=== PATIENT | male | born 1945 | race Caucasian/White ===

== ENCOUNTER 2018-02-23 15:34 | Inpatient (IN) | payer OTHER ==
[~2018-02-23] VITALS: Ht 182.9 cm; Wt 116.7 kg
[~2018-02-23 15:34] MED LIST: ACETAMINOPHEN325 M1 PO; ASPIRIN EC81 M1 PO; BLOOD PRESSURE; BRILINTA90 MG PO; COUMADIN 5 MG TA5 M1 PO; LISINOPRIL2.5 MG PO; METOPROLOL SUCC25 M1 PO; NITROGLYCERIN0.4 MG SL; NORVASC 2.5 MG2.5 M1; SIMVASTATIN40 MG PO
[2018-02-23 15:36] VITALS: BP 150/68
[2018-02-23 15:51] LABS: HEMATOCRIT 39.2 % (42.0-52.0); HEMOGLOBIN 13.2 gm/dL (14.0-18.0); MCH 28.6 pg (26.0-34.0); MCHC 33.7 g/dL (28.0-37.0); MPV 7.6 fl. (7.2-11.1); NUCLEATED RBCS 0 /100WBC; PLATELET COUNT* 131 thou/uL (150-400); RBC 4.61 mil/uL (4.50-6.00); RDW-CV 15.2 % (10.5-14.5); WBC 10.9 thou/uL (4.0-11.0)
[2018-02-23 15:59] LABS: INR 1.9; PROTIME 19.6 Seconds (9.20-11.50)
[2018-02-23 16:06] LABS: ANION GAP 9 mmol/L (7-16); BUN 15 mg/dL (7-18); CALCIUM 7.9 mg/dL (8.5-10.1); CHLORIDE 106 mmol/L (98-107); CO2 26 mmol/L (21-32); CREATININE 1.2 mg/dL (0.6-1.3); GLUCOSE 117 mg/dL (70-99); POTASSIUM 3.8 mmol/L (3.5-5.1); SODIUM 141 mmol/L (136-145)
[2018-02-23 16:09] LABS: INFLUENZA A ANTIGEN None Detected (None Detect); INFLUENZA B ANTIGEN None Detected (None Detect)
[2018-02-23 16:16] LABS: URINE BILIRUBIN NEGATIVE (Negative); URINE BLOOD NEGATIVE (Negative); URINE CLARITY CLEAR; URINE COLOR YELLOW; URINE GLUCOSE-RANDOM NEGATIVE (Negative); URINE KETONES NEGATIVE (Negative); URINE LEUKOCYTES-REFLEX NEGATIVE (Negative); URINE NITRITE-REFLEX NEGATIVE (Negative); URINE PROTEIN NEGATIVE (Negative)
[2018-02-23 16:17] LABS: ALBUMIN 3.6 g/dL (3.4-5.0); ALKALINE PHOSPHATASE 64 U/L (46-116); LIPASE 91 U/L (73-393); NT-PRO BRAIN NAT PEPTIDE 346 pg/mL (<300); SGOT 31 U/L (15-37); SGPT 26 U/L (30-65); TOTAL PROTEIN 7.4 g/dL (6.4-8.2); TROPONIN-I LEVEL <0.06 ng/mL (<0.06)
[2018-02-23 16:28] LABS: ABSOLUTE LYMPHOCYTES 1.2 thou/uL (0.8-5.3); ABSOLUTE MONOCYTES 0.4 thou/uL (0.0-1.2); ABSOLUTE NEUTROPHILS 9.3 thou/uL (1.6-8.1); ANISOCYTOSIS Occasional; PLATELET ESTIMATE DECREASED
[2018-02-23 17:25] VITALS: BP 113/59
[2018-02-23 17:50] VITALS: BP 113/56
[2018-02-23] MEDS ORDERED: NORVASC5 MG PO (18:05)
[2018-02-23] MEDS ORDERED: COUMADIN 5 MG TA5 M1 PO (18:05)
[2018-02-23] MEDS ORDERED: NEXIUM40 MG PO (18:06)
[2018-02-23 20:00] VITALS: BP 94/49
[2018-02-23 23:47] VITALS: BP 104/56; BP 165/90
[2018-02-24 04:00] VITALS: BP 119/61
[2018-02-24 07:48] VITALS: BP 104/50
--- NOTE | 2018-02-24 10:02 | EKG ---
[place] [address] ELECTROCARDIOGRAM REPORT Name: TANK GAMEZ Room: [address] ADM IN [facility]#: [id number] Admission: 02/23/18 Attend Phys: Smith Horner MD Discharge: Date of : 47 Report #: [id number] THIS REPORT FOR: //name// [facility] ED Test Date: 2018-02-23 Test Time: 15:46:06 Pat Name: TANK GAMEZ Department: Room: [facility] Gender: Hemodialysis Patient Care Specialist: Dylan PALAFOX : 1945 Requested By: German Greenwood Order Number: [id number] MD: Wiliam Reyes Measurements Intervals [place] Rate: 95 P: 33 UT: 148 QRS: 10 QRSD: 110 T: 38 QT: 362 QTc: 455 Interpretive Statements Sinus rhythm Probable left atrial enlargement consider Inferior infarct, old Compared to ECG 01/11/2013 08:17:38 anterior t wave changes less prominent Electronically Signed On 02-24-2018 10:02:31 CDT by Wiliam Reyes [email or web address] <ELECTRONICALLY SIGNED> By: Wiliam Reyes MD, FAC 02/24/18 1002 1546 1546 Wiliam Reyes MD, [facility] /EPI
[2018-02-24 11:26] VITALS: BP 128/54
[2018-02-24 15:21] VITALS: BP 134/71
[2018-02-24 20:00] VITALS: BP 134/68
[2018-02-24 23:52] VITALS: BP 109/65
[2018-02-25] VITALS (12 sets, daily range): BP systolic 119–191; BP diastolic 69–103
[2018-02-25 05:15] LABS: CALCIUM 7.8 mg/dL (8.5-10.1); CREATININE 1.6 mg/dL (0.6-1.3); MAGNESIUM 1.4 mg/dL (1.8-2.4); POTASSIUM 3.8 mmol/L (3.5-5.1)
[2018-02-25 05:21] LABS: HEMATOCRIT 33.1 % (42.0-52.0); HEMOGLOBIN 11.4 gm/dL (14.0-18.0); MCH 29.3 pg (26.0-34.0); MCHC 34.3 g/dL (28.0-37.0); MCV 85.5 fL (80.0-100.0); RBC 3.88 mil/uL (4.50-6.00); RDW-CV 16.3 % (10.5-14.5); WBC 10.9 thou/uL (4.0-11.0)
[2018-02-25 11:25] LABS: URINE POTASSIUM-RANDOM 31.5 mmol/L
--- NOTE | 2018-02-25 12:51 | CON ---
[address] [address] CONSULTATION Name: TANK GAMEZ Room: [address] IN .R.#: [id number] Admission: 02/23/18 Attend Phys: Smith Horner MD Discharge: Date of : 47 Report #: [id number] THIS REPORT FOR: //name// CC: David Horner DATE OF SERVICE: 02/24/2018 INFECTIOUS DISEASE CONSULTATION ATTENDING PHYSICIAN: Smith Horner M.D. REASON FOR EVALUATION: Gram-positive septicemia. HISTORY OF PRESENT ILLNESS: Chart reviewed, the patient examined. This is a 72-year-old gentleman with fairly significant medical history, who has known atherosclerotic coronary artery disease, including previous stroke, acute myocardial infarction, also colon cancer, who noted onset of nausea with emesis, who subsequently developed fevers and shaking chills. It sounds like perhaps true rigors. Denies any significant pulmonary-related complaints. He was evaluated and felt to be experiencing onset of sepsis. As a result, blood cultures were collected, 2 out of 2 now growing gram-positive cocci. Urinalysis was otherwise unremarkable. Chest x-ray, question of right lower lobe infiltrate. CT of the chest is more typical of atelectasis. CT abdomen and pelvis showed no acute process. He is generally moderately improved since admission. Denies significant discomfort at this point. He is lucid. ALLERGIES: None known. MEDICATIONS: Levofloxacin, vancomycin, enoxaparin, atorvastatin, ipratropium and albuterol inhaler, metoprolol, aspirin, p.r.n. analgesics and antiemetics. PAST MEDICAL HISTORY: As described above, hypertension, previous stroke, hyperlipidemia, myocardial infarctions and history of colon cancer. SOCIAL HISTORY: Former smoker, occasional ethanol. FAMILY HISTORY: Noncontributory. REVIEW OF SYSTEMS: As above. PHYSICAL EXAMINATION: GENERAL: Alert, cooperative. He is in mild distress, appears reasonably well nourished. VITAL SIGNS: Temperature 99.1 T-max, since admission 103.8; pulse 90; respirations 16 and blood pressure 128/54[place] [address] CONSULTATION Name: TANK GAMEZ Garry Room: [address]#: [id number] Admission: 02/23/18 Attend Phys: Smith Horner MD Discharge: Date of : 47 Report #: [id number] SKIN: Warm, dry. No rashes. 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 NECK: Supple. LUNGS: Generally clear to auscultation. HEART: Regular. I do not appreciate a murmur. ABDOMEN: Soft. It is distended. There are no peritoneal signs. GENITOURINARY: Deferred. RECTAL: Deferred. LABORATORY DATA: Influenza studies were unremarkable. Urinalysis unrevealing. Electrolytes: Sodium 141, potassium 3.8, chloride 106, bicarbonate is 26, BUN and creatinine 15 and 1.2 and glucose is 117. LFTs normal. Albumin 3.6. Total protein 7.4. Lactic acid initially 2.4, peaked at 3.1 and more recently 1.4. Blood cultures, as described above, 2 out of 2 with gram-positive cocci, awaiting ID. Venous Doppler of the lower extremity showed a short segment of nonocclusive thrombus within the distal right superficial femoral vein. CT imaging as described above. CBC: White count of 10.9, H and H 13.2 and 39.2 and platelets of 131,000. ASSESSMENT: Gram-positive septicemia. It is not entirely clear the source at this point. It could be early pneumonitis due to Pneumococcus given the, what sounds like, rigors. It is not really skin related; staphylococcal concern as well. We will continue current therapy as prescribed. Ideally, with identification, it should help clarify perhaps the origin. We will, at that point, in all likelihood pare down treatment. We will monitor expectantly. <ELECTRONICALLY SIGNED> By: Sesar Allison MD 02/25/18 1251 1538 [id number] Allison MD /nt
[2018-02-25 16:37] LABS: SMEAR FOR EOSINOPHILS No Eosinophils Seen
[2018-02-26 03:50] VITALS: BP 109/65
[2018-02-26 04:33] LABS: HEMATOCRIT 32.9 % (42.0-52.0); HEMOGLOBIN 11.2 gm/dL (14.0-18.0); MCH 28.8 pg (26.0-34.0); MCHC 34.1 g/dL (28.0-37.0); MCV 84.5 fL (80.0-100.0); MPV 8.3 fl. (7.2-11.1); RBC 3.89 mil/uL (4.50-6.00); RDW-CV 15.9 % (10.5-14.5); WBC 9.8 thou/uL (4.0-11.0)
[2018-02-26 05:07] LABS: CALCIUM 7.6 mg/dL (8.5-10.1); CREATININE 1.5 mg/dL (0.6-1.3); MAGNESIUM 1.9 mg/dL (1.8-2.4); POTASSIUM 3.9 mmol/L (3.5-5.1)
[2018-02-26 08:00] VITALS: BP 126/82
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
[2018-02-26 11:53] VITALS: BP 125/79
--- NOTE | 2018-02-26 14:57 | 2DMMODE ---
[place] [address] 2 D/M-MODE ECHOCARDIOGRAM Name: TANK GAMEZ Room: [address] IN .R.#: [id number] Admission: 02/23/18 Attend Phys: Smith Horner, Discharge: Date of : 47 Date of Service: 02/26/18 1457 Report #: [id number] THIS REPORT FOR: //name// APPROVED REPORT Study performed: 02/26/2018 14:04:51 EXAM: Comprehensive 2D, Doppler, and color-flow Echocardiogram Patient Location: Bedside BSA: 2.37 HR: 78 bpm BP: 109/65 mmHg Other Information Study Quality: Fair Indications Dyspnea 2D Dimensions IVSd: 13.15 (7-11mm) LVOT Diam: 23.82 (18-24mm) LVDd: 46.75 mm PWd: 12.66 (7-11mm) Ascending Ao: 31.85 (22-36mm) LVDs: 30.58 (25-40mm) Aortic Root: 30.79 mm Volumes Left Atrial Volume (Systole) LA ESV Index: 27.90 mL/m2 Aortic Valve AoV Peak Gabe.: 1.43 m/s AO Peak Gr.: 8.18 mmHg LVOT Max P.21 mmHg AO Mean Gr.: 4.41 mmHg LVOT Mean P.67 mmHg LVOT Max V: 1.14 m/s AO V2 VTI: 23.21 cm LVOT Mean V: 0.76 m/s LEXIE (VTI): 3.79 cm2 LVOT V1 VTI: 19.74 cm Mitral Valve E/A Ratio: 1.56 MV Decel. Time: 161.61 ms MV E Max Gabe.: 1.04 m/s MV PHT: 46.87 ms MVA (PHT): 4.69 cm2 [place] [address] 2 D/M-MODE ECHOCARDIOGRAM Name: TANK GAMEZ Room: [address] IN [facility]#: [id number] Admission: 02/23/18 Attend Phys: Smith Horner, Discharge: Date of : 47 Date of Service: 02/26/18 1457 Report #: [id number] TDI E/Lateral E': 10.40 E/Medial E': 14.86 Medial E' Gabe.: 0.07 m/s Lateral E' Gabe.: 0.10 m/s Pulmonary Valve PV Peak Gabe.: 1.01 m/s PV Peak Gr.: 4.07 mmHg Tricuspid Valve RAP Estimate: 5.00 mmHg TR Peak Gr.: 40.81 mmHg RVSP: 45.81 mmHg PA Pressure: 45.81 mmHg Left Ventricle The left ventricle is normal size. There is distal septal and anteroapical hypokinesis Mild concentric left ventricular hypertrophy. Left ventricular systolic function is normal. The left ventricular ejection fraction is within the normal range. LVEF is 55-60%. Right Ventricle The right ventricle is normal size. The right ventricular systolic function is normal. Atria The left atrium size is normal. The right atrium size is normal. Aortic Valve Mild aortic valve sclerosis. No aortic regurgitation is present. There is no aortic valvular stenosis. Mitral Valve The mitral valve is normal in structure. Mild mitral regurgitation. No evidence of mitral valve stenosis. Tricuspid Valve The tricuspid valve is normal in structure. Trace tricuspid regurgitation. Pulmonic Valve The pulmonary valve is normal in structure. There is no pulmonic valvular regurgitation[place] [address] 2 D/M-MODE ECHOCARDIOGRAM Name: TANK GAMEZ Room: [address]#: [id number] Admission: 02/23/18 Attend Phys: Smith Horner, Discharge: Date of : 47 Date of Service: 02/26/18 1457 Report #: [id number] The aortic root is normal in size. IVC is normal in size and collapses >50% with inspiration. Pericardium There is no pericardial effusion. <Conclusion> The left ventricle is normal size. Mild concentric left ventricular hypertrophy. Left ventricular systolic function is normal. The left ventricular ejection fraction is within the normal range. LVEF is 55-60%. Mild aortic valve sclerosis. No aortic regurgitation is present. There is no aortic valvular stenosis. The mitral valve is normal in structure. Mild mitral regurgitation. The tricuspid valve is normal in structure. IVC is normal in size and collapses >50% with inspiration. There is no pericardial effusion. There is distal septal and anteroapical hypokinesis <ELECTRONICALLY SIGNED> By: Everardo Gipson MD, [facility] 02/26/18 1457 1457 1457 Everardo Gipson MD, FACC /INF
[2018-02-26 16:00] VITALS: BP 142/79
[2018-02-26 19:09] LABS: IgA 271 mg/dL (61-437); IgG 1063 mg/dL (700-1600); IgM 27 mg/dL (15-143)
[2018-02-26 20:00] VITALS: BP 173/82
[2018-02-26 21:30] VITALS: BP 151/78
[2018-02-27] VITALS: BP 144/80
[2018-02-27 03:41] VITALS: BP 106/57
[2018-02-27 05:58] LABS: HEMOGLOBIN 10.9 gm/dL (14.0-18.0); MCH 28.7 pg (26.0-34.0); MCV 84.6 fL (80.0-100.0); MPV 8.4 fl. (7.2-11.1); RBC 3.78 mil/uL (4.50-6.00); RDW-CV 15.4 % (10.5-14.5); WBC 7.2 thou/uL (4.0-11.0)
[2018-02-27 06:21] LABS: CALCIUM 8.7 mg/dL (8.5-10.1); CREATININE 1.6 mg/dL (0.6-1.3); MAGNESIUM 1.8 mg/dL (1.8-2.4); POTASSIUM 3.4 mmol/L (3.5-5.1)
[2018-02-27 08:48] VITALS: BP 108/60
[2018-02-27 12:08] VITALS: BP 138/66
[2018-02-27 16:01] VITALS: BP 136/65
[2018-02-27 20:00] VITALS: BP 154/83
[2018-02-28] VITALS (8 sets, daily range): BP systolic 155–213; BP diastolic 76–103
[2018-02-28 17:07] LABS: KAPPA FREE LIGHT CHAINS 28.2 mg/L (3.3-19.4); LAMBDA FREE LIGHT CHAINS 28.8 mg/L (5.7-26.3)
[2018-03-01] VITALS: BP 129/60
[2018-03-01 04:00] VITALS: BP 166/81
[2018-03-01 08:00] VITALS: BP 166/81
[2018-03-01 11:57] LABS: URINE BILIRUBIN NEGATIVE (Negative); URINE BLOOD 3+ (Negative); URINE CLARITY SL CLOUDY; URINE COLOR YELLOW; URINE GLUCOSE-RANDOM NEGATIVE (Negative); URINE KETONES NEGATIVE (Negative); URINE LEUKOCYTES NEGATIVE (Negative); URINE NITRITE NEGATIVE (Negative); URINE PROTEIN TRACE (Negative); URINE SPECIFIC GRAVITY >= 1.030 (1.005-1.030); URINE UROBILINOGEN 0.2 E.U./dl (0.2-1.0)
[2018-03-01 12:00] VITALS: BP 166/77
[2018-03-01 12:25] LABS: BACTERIA 1-9 Few /HPF (None Seen); HYALINE CASTS 0-3 Few /LPF (None Seen); MUCUS 4-6 Moderate strn/LPF (None Seen); SQUAMOUS 0-3 Few /LPF (0-3); URINE WBC 0-5 Rare /HPF (0-5)
[2018-03-01 12:26] LABS: AMORPHOUS URATES Few /LPF (None Seen); COARSE GRANULAR CASTS 0-3 Few /LPF (None Seen); FINE GRANULAR CASTS 0-3 Few /LPF (None Seen)
[2018-03-01 20:00] VITALS: BP 148/77
[2018-03-02] VITALS: BP 141/72
[2018-03-02 04:00] VITALS: BP 171/79
[2018-03-02 06:49] VITALS: BP 147/70
[2018-03-02 08:31] VITALS: BP 147/67
[2018-03-02 15:21] LABS: COLOR RED; SOURCE L.ANKLE SYNOVIAL; TOTAL VOLUME 10 ml
[2018-03-02 15:22] LABS: BF EOSINOPHILS ND %; BF LYMPHOCYTES ND %; BF MONOCYTES ND %; BF POLYS ND %; BF RBC ND /mm3; BODY FLUID BANDS ND %; CLARITY CLOUDY
[2018-03-02 15:24] LABS: TOTAL CELL COUNT ND /mm3
[2018-03-02 15:45] VITALS: BP 172/78
[2018-03-02 20:00] VITALS: BP 148/77
[2018-03-03] VITALS (7 sets, daily range): BP systolic 152–164; BP diastolic 72–85
[2018-03-03 06:05] LABS: BF CRYSTALS Negative (None seen)
[2018-03-03 12:05] LABS: BODY FLUID PROTEIN 5.6 g/dL (())
[2018-03-03 15:46] LABS: SOURCE LEFT ANKLE
[2018-03-04] VITALS (7 sets, daily range): BP systolic 148–172; BP diastolic 71–82
[2018-03-04 05:02] LABS: HEMATOCRIT 29.5 % (42.0-52.0); HEMOGLOBIN 10.1 gm/dL (14.0-18.0); MCH 28.6 pg (26.0-34.0); MCHC 34.3 g/dL (28.0-37.0); MCV 83.3 fL (80.0-100.0); RBC 3.53 mil/uL (4.50-6.00); WBC 6.3 thou/uL (4.0-11.0)
[2018-03-04 05:18] LABS: CALCIUM 8.2 mg/dL (8.5-10.1); CREATININE 1.3 mg/dL (0.6-1.3); MAGNESIUM 1.8 mg/dL (1.8-2.4); POTASSIUM 3.5 mmol/L (3.5-5.1)
[2018-03-05] VITALS: BP 166/84
[2018-03-05 04:00] VITALS: BP 174/88
[2018-03-05 08:30] VITALS: BP 158/85
[2018-03-05 11:33] VITALS: BP 174/86
[2018-03-05 12:29] LABS: INR 1.2; PROTIME 11.8 Seconds (9.20-11.50)
[2018-03-05] MEDS ORDERED: XARELTO20 MG PO (12:52)
[2018-03-05] MEDS ORDERED: AMOXICILLIN 50500 MG PO (12:52)
[2018-03-05] MEDS ORDERED: XARELTO15 MG PO (12:53)
[2018-03-05] MEDS ORDERED: IPRAT-ALBUT 0.5-3 ML INH (12:55)
[2018-03-05] MEDS ORDERED: BRILINTA90 MG PO (12:55)
[2018-03-05] MEDS ORDERED: PROTONIX40 M1 PO (12:56)
[2018-03-05] MEDS ORDERED: FLOMAX0.4 MG PO (12:56)
== END 2018-03-05 15:25 | disposition home health service (06) | DRG 871 ==
LOC: M.ERS 15:34 → M.TBA-ER 16:29 → M.2W 16:29
PROVIDERS: Family Medicine; Internal Medicine; Orthopaedic Surgery; ADMIT Internal Medicine
PROC: 5A09357 Assistance with Respiratory Ventilation, Less than 24 Consecutive Hours, Continuous Positive Airway Pressure (ICD-10-PCS; principal; 2018-02-25)
PROC: 5A09357 Assistance with Respiratory Ventilation, Less than 24 Consecutive Hours, Continuous Positive Airway Pressure (ICD-10-PCS; 2018-02-26)
PROC: 5A09357 Assistance with Respiratory Ventilation, Less than 24 Consecutive Hours, Continuous Positive Airway Pressure (ICD-10-PCS; 2018-02-27)
PROC: 0S9G3ZX Drainage of Left Ankle Joint, Percutaneous Approach, Diagnostic (ICD-10-PCS; 2018-03-02)
DX: A40.8 Other streptococcal sepsis (principal); J69.0 Pneumonitis due to inhalation of food and vomit; J96.01 Acute respiratory failure with hypoxia; N17.0 Acute kidney failure with tubular necrosis; L03.116 Cellulitis of left lower limb; I50.22 Chronic systolic (congestive) heart failure; I82.501 Chronic embolism and thrombosis of unspecified deep veins of right lower extremity; M25.072 Hemarthrosis, left ankle; M00.9 Pyogenic arthritis, unspecified; I13.0 Hypertensive heart and chronic kidney disease with heart failure and stage 1 through stage 4 chronic kidney disease, or unspecified chronic kidney disease; R65.20 Severe sepsis without septic shock; E78.5 Hyperlipidemia, unspecified; I25.5 Ischemic cardiomyopathy; N18.3 Chronic kidney disease, stage 3 (moderate); I25.10 Atherosclerotic heart disease of native coronary artery without angina pectoris; E83.42 Hypomagnesemia; D69.6 Thrombocytopenia, unspecified; E66.9 Obesity, unspecified; R33.9 Retention of urine, unspecified; J44.9 Chronic obstructive pulmonary disease, unspecified; M25.472 Effusion, left ankle; Z23 Encounter for immunization; Z86.73 Personal history of transient ischemic attack (TIA), and cerebral infarction without residual deficits; I25.2 Old myocardial infarction; Z85.038 Personal history of other malignant neoplasm of large intestine; Z87.891 Personal history of nicotine dependence; Z68.34 Body mass index [BMI] 34.0-34.9, adult; Z79.82 Long term (current) use of aspirin; Z79.899 Other long term (current) drug therapy

== ENCOUNTER 2018-11-17 12:35 | Inpatient (IN) | payer OTHER ==
[~2018-11-17] VITALS: Ht 182.9 cm; Wt 114.2 kg
[~2018-11-17 12:35] MED LIST changes: +AMOXICILLIN 50500 MG PO; +FLOMAX0.4 MG PO; +IPRAT-ALBUT 0.5-3 ML INH; +NEXIUM40 MG PO; +NORVASC5 MG PO; +PROTONIX40 M1 PO; +XARELTO15 MG PO; +XARELTO20 MG PO
[2018-11-17 12:36] VITALS: BP 167/92
[2018-11-17 13:13] LABS: ABSOLUTE EOSINOPHILS 0.1 thou/uL (0.0-0.7); ABSOLUTE LYMPHOCYTES 0.8 thou/uL (0.8-5.3); ABSOLUTE MONOCYTES 0.3 thou/uL (0.0-1.2); ABSOLUTE NEUTROPHILS 2.8 thou/uL (1.6-8.1); BASOPHILS 0.7 %; EOSINOPHILS 1.7 %; HEMATOCRIT 29.6 % (42.0-52.0); HEMOGLOBIN 9.7 gm/dL (14.0-18.0); LYMPHOCYTES 19.9 %; MCH 25.5 pg (26.0-34.0); MCHC 32.8 g/dL (28.0-37.0); MCV 77.6 fL (80.0-100.0); MONOCYTES 7.4 %; NUCLEATED RBCS 0 /100WBC; PLATELET COUNT* 114 thou/uL (150-400); POLYS 70.3 %; RBC 3.81 mil/uL (4.50-6.00); RDW-CV 15.8 % (10.5-14.5)
[2018-11-17 13:18] LABS: ANION GAP 7 mmol/L (7-16); BUN 23 mg/dL (7-18); CALCIUM 8.5 mg/dL (8.5-10.1); CHLORIDE 108 mmol/L (98-107); CO2 29 mmol/L (21-32); CREATININE 1.4 mg/dL (0.6-1.3); GLUCOSE 134 mg/dL (70-99); POTASSIUM 3.6 mmol/L (3.5-5.1); SODIUM 144 mmol/L (136-145)
[2018-11-17 13:21] LABS: APTT 29.3 Seconds (25.0-31.3); INR 1.2; PROTIME 12.6 Seconds (9.20-11.50)
[2018-11-17 13:29] LABS: ALBUMIN 3.4 g/dL (3.4-5.0); ALKALINE PHOSPHATASE 52 U/L (46-116); MAGNESIUM 1.9 mg/dL (1.8-2.4); NT-PRO BRAIN NAT PEPTIDE 522 pg/mL (<300); SGOT 18 U/L (15-37); SGPT 20 U/L (30-65); TOTAL BILIRUBIN 1.1 mg/dL (<0.1-1.0); TOTAL PROTEIN 7.3 g/dL (6.4-8.2); TROPONIN-I LEVEL <0.06 ng/mL (<0.06)
[2018-11-17 14:28] LABS: URINE BILIRUBIN NEGATIVE (Negative); URINE BLOOD 1+ (Negative); URINE CLARITY CLEAR; URINE COLOR YELLOW; URINE GLUCOSE-RANDOM NEGATIVE (Negative); URINE KETONES NEGATIVE (Negative); URINE LEUKOCYTES-REFLEX NEGATIVE (Negative); URINE NITRITE-REFLEX NEGATIVE (Negative); URINE PROTEIN NEGATIVE (Negative); URINE SPECIFIC GRAVITY >= 1.030 (1.005-1.030); URINE UROBILINOGEN 0.2 E.U./dl (0.2-1.0)
[2018-11-17 14:49] LABS: BACTERIA-REFLEX 1-9 Few /HPF (None Seen); CASTS None Seen /LPF (None Seen); CRYSTALS None Seen /LPF (None Seen); SQUAMOUS 0-3 Few /LPF (0-3); URINE RBC 0-2 Rare /HPF (0-2); URINE WBC-REFLEX 0-5 Rare /HPF (0-5)
[2018-11-17 15:19] LABS: AMP/METHAMP Negative (Negative); BARBITURATES Negative (Negative); BENZODIAZEPINES Negative (Negative); COCAINE Negative (Negative); METHADONE Negative (Negative); OPIATES Negative (Negative); PCP Negative (Negative); THC Negative (Negative)
--- NOTE | 2018-11-17 16:22 | NUR ---
PT COMPLETED MRI CHECKLIST; PLACED IN PT'S CHART.
[2018-11-17 18:06] VITALS: BP 162/84
[2018-11-17 18:20] VITALS: BP 165/97
--- NOTE | 2018-11-17 18:52 | NUR ---
PATIENT PRESENTED TO ROOM 221 FROM ER PER CART. PATIENT IS ALERT, ORIENTED X 4 ON ARRIVAL TO THE UNIT. PLACED ON TELE MONITOR. TELE SHOWS SR. IV FLUIDS RESUMED FROM THE ER. PATIENT EDUCATED ON FALL PRECAUTIONS. VITAL SIGNS MONITORED AND DIET ORDERED. BP SOMEWHAT ELEVATED ON ARRIVAL. PATIENT STATES THAT HE FEELS MUCH BETTER THAN WHEN HE CAME IN TO THE ER. WILL REPORT TO CITY LETTER CARRIER.
[2018-11-17 20:00] VITALS: BP 129/69
[2018-11-18] VITALS (9 sets, daily range): BP systolic 128–172; BP diastolic 75–90
[2018-11-18 04:12] LABS: ABSOLUTE EOSINOPHILS 0.1 thou/uL (0.0-0.7); ABSOLUTE LYMPHOCYTES 0.8 thou/uL (0.8-5.3); ABSOLUTE MONOCYTES 0.3 thou/uL (0.0-1.2); ABSOLUTE NEUTROPHILS 2.5 thou/uL (1.6-8.1); BASOPHILS 0.5 %; EOSINOPHILS 1.9 %; HEMATOCRIT 28.9 % (42.0-52.0); HEMOGLOBIN 9.3 gm/dL (14.0-18.0); LYMPHOCYTES 21.9 %; MCHC 32.1 g/dL (28.0-37.0); MCV 77.9 fL (80.0-100.0); MONOCYTES 7.8 %; MPV 7.9 fl. (7.2-11.1); NUCLEATED RBCS 0 /100WBC; PLATELET COUNT* 100 thou/uL (150-400); POLYS 67.9 %; RBC 3.71 mil/uL (4.50-6.00); RDW-CV 15.9 % (10.5-14.5); WBC 3.7 thou/uL (4.0-11.0)
--- NOTE | 2018-11-18 04:17 | NUR ---
ASSUMED PT CARE APPROX 1900, PT IS AWAKE AND ORIENTED X4. VSS ON ROOM AIR. VENDING ENTERPRISES SUPERVISOR IN PLACE TRACING SR ON TELE. PT DENIES PAIN AND DISCOMFORT. ASSESSMENT DONE AND CHARTED. NIH PERFORMED, PLS SEE CHARTING. PT ADVISED TO HAVE NOTHING PER OREM PER PROTOCOL(+DYSARTHRIA). PT WAS ABLE TO SLEEP THROUGH THE NIGHT. CALL LIGHT WITHIN REACH. HOURLY ROUNDING DONE FOR PT SAFETY.
[2018-11-18 04:44] LABS: ANION GAP 8 mmol/L (7-16); BUN 20 mg/dL (7-18); CALCIUM 8.7 mg/dL (8.5-10.1); CHLORIDE 111 mmol/L (98-107); CHOLESTEROL 138 mg/dL (<200); CO2 26 mmol/L (21-32); CREATININE 1.3 mg/dL (0.6-1.3); GLUCOSE 126 mg/dL (70-99); HDL CHOLESTEROL 31 mg/dL (>40); LDL CHOLESTEROL 69 mg/dL (<100); POTASSIUM 4.1 mmol/L (3.5-5.1); SERUM ASSESSMENT Clear; SODIUM 145 mmol/L (136-145); TC:HDL 4.5 Ratio (Not establshd); TRIGLYCERIDE 194 mg/dL (<150); VLDL 39 mg/dL (<40)
--- NOTE | 2018-11-18 09:52 | NUR ---
MARKETING ASSISTANT: MET WITH PATIENT, REVIEWED STROKE PROGRAM. PT DENIES DIZZINESS OR BLURRY VISION. SPEECH SOMEWHAT CLEAR, WAITING FOR SUPPLIE TO PUT IN DENTURES. REVIEWED BLOOD PRESSURE MANAGMENT AND MEDICATIONS. NO CONCERNS AT THIS TIME.
--- NOTE | 2018-11-18 10:00 | NUR ---
ASSUMED PT 0730, AOX4, SBA, 02 SAT 90'S RA. PT DENIES ANY PAIN. PT FOR ACCU CHECK. TRACING SINUS RUFINO ON TELE. LOWER EXTREMITY EDEMA NOTED. PT NPO FOR SPEECH EVAL. PT FOR ECHO COMPLETE. ORTHOSTATIC BP CHECKED. VSS, AM ASSESMENT CHARTED. MEDS GIVEN PER MAR. CALL LIGHT WITHIN REACH. HOURLY ROUNDING. WILL CONTINUE TO MONITOR.
--- NOTE | 2018-11-18 10:49 | EKG ---
[place] [address] ELECTROCARDIOGRAM REPORT Name: TANK GAMEZ Room: [address] ADM IN [facility]#: [id number] Admission: 11/17/18 Attend Phys: Caleb Salgado MD Discharge: Date of : 47 Report #: [id number] THIS REPORT FOR: //name// [facility] ED Test Date: 2018-11-17 Test Time: 14:09:01 Pat Name: TANK GAMEZ Department: Room: [facility] Gender: M Correctional Program Officer: : 1945 Requested By: Darryl Taylor Order Number: [id number] MD: Wiliam Reyes Measurements Intervals [place] Rate: 60 P: 41 [place]: 166 QRS: 30 QRSD: 128 T: 25 QT: 436 QTc: 436 Interpretive Statements Sinus rhythm Nonspecific intraventricular conduction delay Compared to ECG 02/23/2018 15:46:06 Myocardial infarct finding no longer present Electronically Signed On 11-18-2018 10:48:54 CDT by Wiliam Reyes [email or web address] <ELECTRONICALLY SIGNED> By: Wiliam Reyes MD, [facility] 11/18/18 1048 1409 140 Wiliam Reyes MD, [facility] /EPI
[2018-11-18 11:06] LABS: GLYCOHEMOGLOBIN (HGB A1C) 6.7 % (4.8-5.6)
--- NOTE | 2018-11-18 12:25 | NUR ---
Pt is A&O. Resides at home with his . Independent, continues to drive, and Pt share recreational assistant. Pt has a walker that he can use for mobility. Pt has a neb through [employer] and a shower chair. Hx of [facility] HH. No hx of SNF. Pt is hopeful that he will be able to return home at or. Following.
--- NOTE | 2018-11-18 16:36 | 2DMMODE ---
[place] [address] 2 D/M-MODE ECHOCARDIOGRAM Name: TANK GAMEZ Room: [address] IN [facility]#: [id number] Admission: 11/17/18 Attend Phys: Caleb Salgado MD Discharge: Date of : 47 Date of Service: 11/18/18 1635 Report #: [id number] THIS REPORT FOR: //name// APPROVED REPORT Study performed: 11/18/2018 13:50:23 EXAM: Comprehensive 2D, Doppler, and color-flow Echocardiogram, bubble study Patient Location: In-Patient Room #: [facility] Status: routine BSA: 2.34 HR: 63 bpm BP: 156/82 mmHg Rhythm: NSR Other Information Technically limited study due to poor endocardial definition, body habitus. Indications CVA/TIA Echo Enhancing Agent Indication: Endocardial border delineation and rule out shunt Agent(s) / Amount(s) Used: Optison 3 cc Agitated Saline 10 cc 2D Dimensions IVSd: 15.67 (7-11mm) LVOT Diam: 21.87 (18-24mm) LVDd: 46.27 mm PWd: 14.49 (7-11mm) Ascending Ao: 36.77 (22-36mm) LVDs: 28.48 (25-40mm) Aortic Root: 38.83 mm Volumes Left Atrial Volume (Systole) LA ESV Index: 35.30 mL/m2 Aortic Valve AoV Peak Gabe.: 1.16 m/s AO Peak Gr.: 5.35 mmHg LVOT Max P.46 mmHg AO Mean Gr.: 3.25 mmHg LVOT Mean P.05 mmHg LVOT Max V: 1.06 m/[place] [address] 2 D/M-MODE ECHOCARDIOGRAM Name: TANK GAMEZ Room: [address] IN .R.#: [id number] Admission: 11/17/18 Attend Phys: Caleb Salgado MD Discharge: Date of : 47 Date of Service: 11/18/18 1635 Report #: [id number] AO V2 VTI: 27.39 cm LVOT Mean V: 0.65 m/s LEXIE (VTI): 3.22 cm2 LVOT V1 VTI: 23.47 cm Mitral Valve E/A Ratio: 1.83 MV Decel. Time: 182.33 ms MV E Max Gabe.: 0.89 m/s MV PHT: 52.88 ms MVA (PHT): 4.16 cm2 TDI E/Lateral E': 8.90 E/Medial E': 9.89 Medial E' Gabe.: 0.09 m/s Lateral E' Gabe.: 0.10 m/s Pulmonary Valve PV Peak Gabe.: 0.88 m/s PV Peak Gr.: 3.08 mmHg Tricuspid Valve RAP Estimate: 5.00 mmHg TR Peak Gr.: 38.85 mmHg RVSP: 43.00 mmHg PA Pressure: 43.00 mmHg Left Ventricle Left ventricle is mildly dilated. apical akinesis Mild to moderate concentric left ventricular hypertrophy. Left ventricular systolic function is moderately decreased. LVEF is 35-40%. Grade IV - fixed restrictive diastolic dysfunction. Right Ventricle Right ventricle is dilated. The right ventricular systolic function is normal. Atria Left atrium is mildly dilated. Interatrial septum is intact without evidence of ASD or PFO. Right atrium is dilated. Aortic Valve Aortic valve leaflets are mildly thickened. Trace aortic regurgitation. There is no aortic valvular stenosis. Mitral Valve The mitral valve is normal in structure. Mild mitral regurgitation. No evidence of mitral valve stenosis[place] [address] 2 D/M-MODE ECHOCARDIOGRAM Name: GAMEZTANK Room: [address] IN [facility]#: [id number] Admission: 11/17/18 Attend Phys: Caleb Salgado MD Discharge: Date of : 47 Date of Service: 11/18/18 1635 Report #: [id number] The tricuspid valve is normal in structure. Mild tricuspid regurgitation. estimated pa pressure 45 mm Hg Pulmonic Valve Pulmonic valve is not well visualized. There is no pulmonic valvular regurgitation. Great Vessels The aortic root is normal in size. IVC is normal in size and collapses >50% with inspiration. Pericardium There is no pericardial effusion. <Conclusion> Mild to moderate concentric left ventricular hypertrophy. apical akinesis LVEF is 35-40%. Left atrium is mildly dilated. Mild mitral regurgitation. Interatrial septum is intact without evidence of ASD or PFO. Mild tricuspid regurgitation. estimated pa pressure 45 mm Hg <ELECTRONICALLY SIGNED> By: Wiliam Reyes MD, FACC 11/18/18 1635 1635 1635 Wiliam Reyes MD, FACC /INF
--- NOTE | 2018-11-18 17:37 | NUR ---
PT STILL TRACING SINUS RUFINO ON TELE. HAD ECHO TODAY. VSS, HOURLY ROUNDING. ALL NEED MET AT THIS TIME. WILL CONTINUE TO MONITOR.
[2018-11-19 00:15] VITALS: BP 116/65
--- NOTE | 2018-11-19 03:06 | NUR ---
ASSUMED PT CARE AT APPROX 1930. PT IS AWAKE AND ORIENTED X4. VSS ON ROOM AIR. COMMERCIAL LITIGATION ASSOCIATE IN PLACE TRACING SR. ASSESSMENT DONE AND CHARTED. PT WAS ABLE TO SLEEP THROUGH THE NIGHT. CALL LIGHT WITHIN REACH. HOURLY ROUNDING DONE FOR PT SAFETY.
[2018-11-19 04:00] VITALS: BP 146/78
[2018-11-19 05:11] LABS: ABSOLUTE EOSINOPHILS 0.1 thou/uL (0.0-0.7); ABSOLUTE LYMPHOCYTES 0.6 thou/uL (0.8-5.3); ABSOLUTE MONOCYTES 0.4 thou/uL (0.0-1.2); ABSOLUTE NEUTROPHILS 3.7 thou/uL (1.6-8.1); BASOPHILS 0.6 %; EOSINOPHILS 1.9 %; HEMATOCRIT 29.1 % (42.0-52.0); HEMOGLOBIN 9.4 gm/dL (14.0-18.0); MCH 25.2 pg (26.0-34.0); MCHC 32.4 g/dL (28.0-37.0); MCV 77.8 fL (80.0-100.0); MONOCYTES 7.5 %; MPV 8.1 fl. (7.2-11.1); NUCLEATED RBCS 0 /100WBC; PLATELET COUNT* 99 thou/uL (150-400); RBC 3.73 mil/uL (4.50-6.00); RDW-CV 15.9 % (10.5-14.5); WBC 4.8 thou/uL (4.0-11.0)
[2018-11-19 05:23] LABS: CALCIUM 8.3 mg/dL (8.5-10.1); CREATININE 1.2 mg/dL (0.6-1.3); POTASSIUM 3.8 mmol/L (3.5-5.1)
[2018-11-19 08:00] VITALS: BP 159/90
--- NOTE | 2018-11-19 11:14 | NUR ---
ASSUMED PT CARE AT 0800. AOX4, UP SBA. O2 SAT 90'S RA. TRACING SR ON TELE. LUNG SOUND CLEAR. LAST BM TODAY. DENIES PAIN, PT STATES HE FEELS BETTER. VSS, AM ASSESSMENT CHARTED. MEDS GIVEN PER MAR. CALL LIGHT WITHIN REACH. WILL CONTINUE TO MONITOR.
--- NOTE | 2018-11-19 11:48 | NUR ---
CARE SPECIALIST SPOKE TO THE PATIENT TO DISCUSS DISCHARGE PLANNING, AND HH AT D/C. PATIENT INFORMS THAT HE HAD BEEN ON-SERVICE WITH [facility] IN THE PAST AND WOULD LIKE TO USE THEM AGAIN. D/C OUTSIDE PLANT ENGINEER ASSISTED THE PATIENT IN COMPLETING CHOICE OF VENDOR FORM AND PLACED COPY ON THE CHART. D/C OUTSIDE PLANT ENGINEER INFORMED [facility] OF THE HH REFERRAL, AND WILL FAX D/C ORDERS WHEN AVAIALABLE. CM WILL REMAIN AVAILABLE TO ASSIST AND FOLLOW NEEDED.
[2018-11-19 11:53] VITALS: BP 159/90
[2018-11-19 12:48] VITALS: BP 128/77
[2018-11-19] MEDS ORDERED: LIPITOR40 MG PO (12:48)
[2018-11-19] MEDS ORDERED: METOPROLOL SUCC25 M1 PO (12:48)
[2018-11-19] MEDS ORDERED: COZAAR 50 MG TA50 M1 PERTUBE (12:49)
[2018-11-19] MEDS ORDERED: VITAMIN B-12500 MCG PO (12:50)
[2018-11-19] MEDS ORDERED: THERA M PLUS T1 EAC2 PO (12:50)
[2018-11-19 14:55] VITALS: BP 159/90
--- NOTE | 2018-11-19 16:00 | NUR ---
DISCHARGE PLAN DISCUSSED WITH PT. MEDICATION/SCRIPT GIVEN. IV, TELE REMOVED. REMINDED TO FOLLOW UP WITH PCP, CARDIOLOGY. LEFT THE UNIT VIA WHEELCHAIR AT 1553
--- NOTE | 2018-11-23 14:10 | CON ---
[address] [address] CONSULTATION Name: TANK GAMEZ Room: [address] IN ..#: [id number] Admission: 11/17/18 Attend Phys: Caleb Salgado MD Discharge: 11/19/18 Date of : 47 Report #: [id number] THIS REPORT FOR: //name// CC: David Salgado DATE OF SERVICE: 11/18/2018 HISTORY OF PRESENT ILLNESS: This is a 73-year-old male patient who is somewhat a poor historian. He said he is here because his case wanted to be checked out. He indicates that he was watching TV and then noticed that he was dizzy. He checked his blood pressure, it was high. I asked him if the blood pressure monitor gave him the pulse also, he said it did, but he does not remember how much it was. He is not feeling dizzy now. The episode came spontaneously. He said he was able to move all 4 extremities. It is not certain that he was ataxic. He did not get up and is not certain if he was ataxic or not. He said he did not get up or try to get up because he does not want to fall down. REVIEW OF SYSTEMS: Indicates that the patient is on Xarelto. To me, he tells that he takes that medication regularly, although he is not very compliant with other medications, like his cholesterol medication. He said he does have a history of hypertension, as well as dyslipidemia. He does have somewhat lower heart rate during this hospitalization. Otherwise, he feels back to his baseline now. He tells me that he is not having any new eye, ENT symptoms. He does not feel he has any shortness of breath. He does not complain of any GI, , musculoskeletal, constitutional, dermatological, hematological, psychiatric, throat, or allergic symptom associated with present symptomatology. PAST MEDICAL HISTORY: Not clear. He said he had similar episode in the past, but they were not that severe. He could not tell me the detail or when those episodes occurred. FAMILY HISTORY: Negative for any early-age stroke. SOCIAL HISTORY: The patient indicates he does not abuse alcohol. PHYSICAL EXAMINATION: NEUROLOGIC: The patient's examination indicate he is alert. His speech looks intact. He is oriented. He can follow simple commands. He believes his memory and fund of knowledge is his baseline. Cranial nerve examination, 2-12 looks unremarkable. His neuromuscular examination indicates that his reflexes are diminished on both sides, but his position sense is intact. His tone looks unremarkable. He was able to do [id number] reasonably well. His fundus could not be visualized because he was not able to stare long enough. EXTREMITIES: His pulses are difficult to feel in the lower extremities. He does not have much edema, cyanosis, [place] [address] CONSULTATION Name: GAMEZTANK Room: [address]#: [id number] Admission: 11/17/18 Attend Phys: Caleb Salgado MD Discharge: 11/19/18 Date of : 47 Report #: [id number] CARDIAC: His cardiac examination is unremarkable. LUNGS: He does not have any respiratory difficulty or rhonchi. VITAL SIGNS: His blood pressure is 156/82, pulse is 61, temperature is 97.1. LABORATORY DATA: He is anemic with a hemoglobin of 9.3. He has a pretty extensive neurological workup. He had an MRI of the brain, which showed a question of stroke in the left frontal area, that will not correlate with his symptoms and that is a subtle finding. He does have a prior history of strokes in the brain, but his MRA of the brain was pretty much unremarkable. He had a carotid Doppler, which showed moderate amount of abnormality, but no hemodynamically significant stenosis. IMPRESSION: This patient's episode is poorly defined. Neurologically, the possibility of posterior fossa transient ischemic attack can be considered in this patient, but that history is not very typical. Furthermore, MRA looks unremarkable, making that even less likely. I think we need to concentrate to look for any cardiac or hypertensive related cause for his symptom and that workup is already in progress and some of it will be done as an inpatient and some of them will be done as an outpatient. He is significantly anemic. If he does have fluctuation in his blood pressure, his brain is going to be affected more than usual because of his anemia. His B12 is also on the lower side, again we can replace that. I will discuss the patient with hospitalist and I think the emphasis should be to presently workup for any cardiac symptoms, as well as any etiology for the patient's anemia if that can be corrected. Thank you very much for this referral and we will follow the patient along with you. <ELECTRONICALLY SIGNED> By: Ricco Cummins MD 11/23/18 1410 1014 1210Ricco Cummins MD /nt
== END 2018-11-19 15:53 | disposition home health service (06) | DRG 309 ==
LOC: M.ERS 12:35 → M.2W 14:37 → M.TBA-ER 14:37 → M.2W 18:17
PROVIDERS: Nurse Practitioner Psychiatric/Mental Health; ADMIT Family Medicine
DX: I49.8 Other specified cardiac arrhythmias (principal); I50.22 Chronic systolic (congestive) heart failure; I13.0 Hypertensive heart and chronic kidney disease with heart failure and stage 1 through stage 4 chronic kidney disease, or unspecified chronic kidney disease; R55 Syncope and collapse; E78.5 Hyperlipidemia, unspecified; I25.5 Ischemic cardiomyopathy; N18.3 Chronic kidney disease, stage 3 (moderate); I25.10 Atherosclerotic heart disease of native coronary artery without angina pectoris; R61 Generalized hyperhidrosis; H53.8 Other visual disturbances; D69.6 Thrombocytopenia, unspecified; D50.9 Iron deficiency anemia, unspecified; E53.8 Deficiency of other specified B group vitamins; Z86.73 Personal history of transient ischemic attack (TIA), and cerebral infarction without residual deficits; Z86.711 Personal history of pulmonary embolism; I25.2 Old myocardial infarction; Z95.5 Presence of coronary angioplasty implant and graft; Z85.038 Personal history of other malignant neoplasm of large intestine; Z87.891 Personal history of nicotine dependence; Z86.718 Personal history of other venous thrombosis and embolism; Z79.899 Other long term (current) drug therapy

== ENCOUNTER → 2019-01-05 | Outpatient (CLI) | payer OTHER ==
[~2019-01-05] VITALS: Ht 182.9 cm; Wt 110.7 kg
[~2019-01-05] MED LIST changes: +COZAAR 25 MG TA25 M1 PO; +COZAAR 50 MG TA50 M1 PERTUBE; +LIPITOR40 MG PO; +THERA M PLUS T1 EAC2 PO; +VITAMIN B-12500 MCG PO
[2019-01-05 10:13] VITALS: BP 179/99
[2019-01-05 10:31] LABS: HEMOGLOBIN 11.7 gm/dL (14.0-18.0); MCH 27.4 pg (26.0-34.0); MCHC 33.6 g/dL (28.0-37.0); MCV 81.7 fL (80.0-100.0); MPV 7.4 fl. (7.2-11.1); RBC 4.28 mil/uL (4.50-6.00); RDW-CV 19.2 % (10.5-14.5); WBC 4.1 thou/uL (4.0-11.0)
[2019-01-05 10:41] LABS: CREATININE 1.4 mg/dL (0.6-1.3); POTASSIUM 4.2 mmol/L (3.5-5.1)
[2019-01-05 13:50] VITALS: BP 140/79
[2019-01-05 14:22] VITALS: BP 134/76
[2019-01-05 14:30] VITALS: BP 144/91
[2019-01-05 14:45] VITALS: BP 140/79
[2019-01-05 15:00] VITALS: BP 146/81
--- NOTE | 2019-01-05 15:20 | EKG ---
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1945 Requested By: Wiliam Reyes Order Number: [id number] Mane MD: Wiliam Reyes Measurements Intervals [place] Rate: 62 P: 31 MO: 173 QRS: 14 QRSD: 160 T: 23 QT: 402 QTc: 409 Interpretive Statements Sinus rhythm poor r wave progression Nonspecific intraventricular conduction delay Abnormal inferior Q waves Compared to ECG 11/17/2018 14:09:01 no change Electronically Signed On 01-05-2019 15:20:27 CDT by Wiliam Reyes [email or web address] <ELECTRONICALLY SIGNED> By: Wiliam Reyes MD, [facility] 01/05/19 1520 1030 1030 Wiliam Reyes MD, FAC /EPI
--- NOTE | 2019-01-05 15:24 | EKG ---
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
--- NOTE | 2019-01-06 11:06 | CARD ---
[address] [address] CARDIAC CATH REPORT Name: GAMEZTANKELKIN GAUTAMT Room: [facility] [place]#: [id number] Admission: 01/05/19 Attend Phys: Wiliam Reyes MD, F Discharge: Date of : 47 Report #: [id number] THIS REPORT FOR: //name// APPROVED REPORT Study performed: 01/05/2019 11:08:22 Patient Status: Out-Patient Room #: Exam: Insertion of Dual Chamber Permanent Pacemaker Indications: Sick Sinus Syndrome The patient is a 73 year-old male with a history of dizziness. Patient Info Anticoagulant Therapy: xarelto Implanted Devices: permanent dual chamber mri compatible pacemaker and leads Procedure The patient underwent informed consent. We discussed the details of the procedure including the risks, which include, but not limited to bleeding, infection, vascular damage, cardiac perforation, and pneumothorax. He understood these risks and was willing to proceed. As such, he was brought to the EP/Cardiac Catheterization laboratory in a fasting and sedated state and prepped and draped in a sterile fashion, received IV antibiotics prior to initiation of the procedure and a venogram was performed showing patency of the left axillary vein. The patient underwent conscious sedation, with no related complications. The patient was brought to the EP/Cardiac Catheterization laboratory and the left chest and shoulder were prepped and draped in a sterile manner. During this case, Fluoroscopy and visipaque 20cc were used for imaging. The left subclavian region was infiltrated with 2% Lidocaine subcutaneous anesthesia. A transverse incision was made in the left upper chest cavity. The subcutaneous pocket was formed via blunt dissection. Percutaneous venous access was achieved and an introducer sheath was inserted into the left Subclavian vein. Sheaths were positions using the modified Seldinger technique Through the introducer sheaths the atrial [place] [address] CARDIAC CATH REPORT Name: TANK GAMEZ Room: [facility]#: [id number] Admission: 01/05/19 Attend Phys: Wiliam Reyes MD, F Discharge: Date of : 47 Report #: [id number] were positioned in the right atrial appendage and right ventricular apex respectively. Utilizing fluoroscopic guidance, the atrial and ventricular lead wires were advanced over the wires and positioned in the right atria and right ventricle respectively. Capturing and sensing thresholds were verified. Pocket was irrigated with d-stat flowable prior to inserting the pacemaker. Electrode Parameters P Wave: 4.0 mv R Wave: 12 mv Atrial Threshold: 0.8 v @ 0.4 ms Ventricular Threshold: 0.6 v @ 0.4 ms Atrial Resistance: 500 ohm Ventricular Resistance: 1000 ohm Dual Chamber The atrial and ventricular leads were then secured using 0 silk sutures. The subcutaneous pocket was irrigated with ancef antibiotic solution.The atrial and ventricular leads were attached to the appropriate receptacles on the pulse generator and set screws firmly tightened to insure adequate contact and stability. The lead and pulse generator were placed into the subcutaneous pocket. Sharp and sponge counts were confirmed to be correct. At this time the pocket was closed subcutaneously with a 0 Vicryl and the skin was closed with a 4.0 Vicryl. The operative site was dressed in sterile fashion with skin affix and the patient was transferred to the floor in stable condition. Complications The patient tolerated the procedure well and there were no complications associated with the procedure. Findings Specimens Removed: No Estimated Blood Loss: 5 cc Conclusion successful placement of a dual chamber pacemaker and leads. <ELECTRONICALLY SIGNED> By: Wiliam Reyes MD, [facility] 01/06/19 1105 1105 1105Daantwon Reyes MD, FAC /INF
== END | disposition home or self-care (01) ==
LOC: M.CL 09:31
PROVIDERS: Internal Medicine Cardiovascular Disease
DX: I49.5 Sick sinus syndrome (principal); I10 Essential (primary) hypertension; E78.5 Hyperlipidemia, unspecified; I25.2 Old myocardial infarction; I25.10 Atherosclerotic heart disease of native coronary artery without angina pectoris; E11.9 Type 2 diabetes mellitus without complications; Z79.01 Long term (current) use of anticoagulants; Z87.891 Personal history of nicotine dependence; Z86.73 Personal history of transient ischemic attack (TIA), and cerebral infarction without residual deficits; Z85.038 Personal history of other malignant neoplasm of large intestine; Z98.890 Other specified postprocedural states; Z79.899 Other long term (current) drug therapy; Z87.01 Personal history of pneumonia (recurrent)

== ENCOUNTER 2019-08-18 15:53 | Inpatient (IN) | payer OTHER ==
[~2019-08-18] VITALS: Ht 177.8 cm; Wt 112.5 kg
[2019-08-18 15:56] VITALS: BP 180/103
--- NOTE | 2019-08-18 16:27 | NUR ---
APPROXIMATELY 400 ML SODIUM CHLORIDE HAS INFUSED UPON PT ENTERING ER. FLUIDS STARTED BY EMS.
[2019-08-18 16:36] LABS: ABSOLUTE BASOPHILS 0.1 thou/uL (0.0-0.2); ABSOLUTE EOSINOPHILS 0.1 thou/uL (0.0-0.7); ABSOLUTE MONOCYTES 0.4 thou/uL (0.0-1.2); EOSINOPHILS 1.6 %; HEMATOCRIT 27.1 % (42.0-52.0); HEMOGLOBIN 8.8 gm/dL (14.0-18.0); LYMPHOCYTES 17.5 %; MCH 24.2 pg (26.0-34.0); MCHC 32.4 g/dL (28.0-37.0); MCV 74.7 fL (80.0-100.0); MONOCYTES 6.6 %; MPV 7.6 fl. (7.2-11.1); NUCLEATED RBCS 0 /100WBC; PLATELET COUNT* 135 thou/uL (150-400); POLYS 73.3 %; RBC 3.63 mil/uL (4.50-6.00); RDW-CV 16.1 % (10.5-14.5); WBC 5.5 thou/uL (4.0-11.0)
[2019-08-18 16:40] LABS: CREATININE 1.1 mg/dL (0.6-1.3); POTASSIUM 3.9 mmol/L (3.5-5.1)
[2019-08-18 16:44] LABS: ALBUMIN 3.3 g/dL (3.4-5.0); TOTAL BILIRUBIN 0.9 mg/dL (<0.1-1.0); TOTAL PROTEIN 7.6 g/dL (6.4-8.2)
[2019-08-18 16:47] LABS: INR 1.3; PROTIME 13.1 Seconds (9.20-11.50)
--- NOTE | 2019-08-18 16:47 | NUR ---
PT ASSISTED ONTO BEDSIDE CAMODE AND BACK INTO BED.
--- NOTE | 2019-08-18 17:37 | NUR ---
PT HAD A VERY LARGE AMOUNT OF FORMED STOOL WHILE SITTING ON BEDSIDE CAMODE. PT NOW REPORTS NO NAUSEA AND DENIES PAIN.
[2019-08-18 17:42] LABS: URINE BILIRUBIN NEGATIVE (Negative); URINE BLOOD TRACE (Negative); URINE CLARITY CLEAR; URINE COLOR YELLOW; URINE GLUCOSE-RANDOM NEGATIVE (Negative); URINE KETONES NEGATIVE (Negative); URINE LEUKOCYTES-REFLEX 1+ (Negative); URINE NITRITE-REFLEX NEGATIVE (Negative); URINE PROTEIN NEGATIVE (Negative); URINE SPECIFIC GRAVITY >= 1.030 (1.005-1.030); URINE UROBILINOGEN 0.2 E.U./dl (0.2-1.0)
[2019-08-18 17:52] LABS: HYALINE CASTS 0-3 Few /LPF (None Seen); MUCUS None Seen strn/LPF (None Seen); SQUAMOUS 0-3 Few /LPF (0-3)
[2019-08-18 17:53] LABS: BACTERIA-REFLEX 1-9 Few /HPF (None Seen); CRYSTALS None Seen /LPF (None Seen); URINE RBC 0-2 Rare /HPF (0-2); URINE WBC-REFLEX 6-15 Few /HPF (0-5)
--- NOTE | 2019-08-18 21:36 | NUR ---
CALLED THE HEALTH DEPARTMENT AND SPOKE TO LUDA MCMILLAN, RESEARCH METEOROLOGICAL TECHNICIAN. AT THIS TIME PT TANK GAMEZ DOES NOT MEET CRITERIA TO HAVE HIS SPECIMEN SENT FOR SCREENING TO THE HEALTH DEPARTMENT. HE WAS NEGATIVE FOR FEVER AND THIS INSTANTLY DISQUALIFIED HIM.
[2019-08-18 22:45] VITALS: BP 202/108
[2019-08-19] VITALS: BP 150/80
[2019-08-19 03:40] VITALS: BP 145/77
--- NOTE | 2019-08-19 08:06 | NUR ---
PT ARRIVED TO UNIT PER ED CART. AMBULATED W STEADY GAIT. REPORTED DIZZINESS HAD RESOLVED AFTER IV FLUID BOLUSES. NOTIFIED ABOUT HIGH BP. METOPROLOL EFFECTIVE. PT DENIED ANY PAIN OR DISCOMFORT. REPORTED "COLD SYMPTOMS A WEEK AGO." VSS. VPACED ON MONITOR. CALL LIGHT IN REACH. HOURLY ROUNDING FOR SAFETY.
[2019-08-19 08:09] VITALS: BP 160/92
--- NOTE | 2019-08-19 09:27 | NUR ---
ASSUMED CARE OF PT THIS AM AROUND 0715- COMMUNITY COORDINATOR FOR HIGH SCHO[employer] IN PLACE ORDERED, TRACING SR- UPON ASSESSMENT PT NOTED TO BE RESTING IN BED, WATCHING TV- PT A&O X4- CONT OF BOWEL AND BLADDER- SBA ASSIST WITH TRANSFERS- LCTA/DIMINISHED, DYSPNEA NOTED ON EXERTION- VSS- ABD SOFT/ROUND/NON-TENDER, BS X4 QUADS- LAST BM REPORTED 08/18/19- IV NOTED TO LEFT HAND INTACT, IVF INFUSSING PRESCRIBED- GOOD PO INTAKE NOTED THIS AM WITH BREAKFAST- PT DENIES ANY C/O PAIN/DISCOMFORT AT THIS TIME- ISOLATION IN PLACE AND MAINTAINED INDICATED R/T PENDING TEST- CALL LIGHT AND PERSONAL BELONGINGS WITH IN REACH- PT MAKES NEEDS KNOWN- ALL NEEDS MET AT THIS TIME-WCTM
--- NOTE | 2019-08-19 10:36 | EKG ---
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 : 1945 Requested By: Yuly Harris Order Number: [id number] MD: Wiliam Reyes Measurements Intervals [place] Rate: 68 P: 43 CO: 160 QRS: 14 QRSD: 124 T: 31 QT: 403 QTc: 429 Interpretive Statements Sinus rhythm Probable left ventricular hypertrophy Abnormal inferior Q waves Compared to ECG 01/05/2019 14:30:25 LEFT VENTRICULAR HYPERTROPHY now present Electronically Signed On 08-19-2019 10:35:21 CDT by Wiliam Reyes [email or web address] <ELECTRONICALLY SIGNED> By: Wiliam Reyes MD, [facility] 08/19/19 1035 1556 1556 Wiliam Reyes MD, [facility] /EPI
[2019-08-19 12:20] VITALS: BP 138/73
[2019-08-19 15:52] VITALS: BP 144/75
--- NOTE | 2019-08-19 16:10 | NUR ---
cm review pt chart: pt lives w/spouse. pt has a walker. pt had no hx w/snf.pt has hx w/[facility]. pt attempted to contact pt spouse, hayley [phone]. cm to f/u w/family. cm to cont to follow.
[2019-08-19 20:10] VITALS: BP 155/88
[2019-08-20 00:39] VITALS: BP 133/71
[2019-08-20 04:41] VITALS: BP 120/67
--- NOTE | 2019-08-20 07:18 | NUR ---
VSS. SEE MAR. SEE CHARTING. HOURLY ROUNDING FOR SAFETY.
[2019-08-20 07:47] VITALS: BP 142/78
--- NOTE | 2019-08-20 07:50 | CON ---
[address] [address] CONSULTATION Name: GAMEZTANK Room: [address] ADM IN M.R.#: [id number] Admission: 08/18/19 Attend Phys: Jaycob Herron Discharge: Date of : 47 Report #: [id number] THIS REPORT FOR: //name// cc: David Mccormack MD, Cabot L. MD ~ THIS REPORT FOR: //name// CC: David Garcia DATE OF SERVICE: 08/19/2019 INFECTIOUS DISEASE CONSULTATION ATTENDING PHYSICIAN: Vishal Garcia MD REASON FOR EVALUATION: Pneumonitis, possibly urinary tract infection. HISTORY OF PRESENT ILLNESS: Chart reviewed, patient examined. This is a 74-year-old with fairly extensive medical history, has known vasculopathy, previous myocardial infarction, strokes, does have diabetes mellitus apparently as well who apparently was running errands with sudden onset of dizziness. There is question of some dehydration. He noted about a month ago, had a similar type episode, was found to have blood pressure of 87/52. Denied significant pulmonary or gastrointestinal related signs or symptoms. On evaluation, he was found to have normal white count. Lymphocyte absolute was 1000. Troponin level 0.06. Lactic acid 0.7. Urinalysis did show some moderate pyuria of 6-15 white cells. Chest x-ray was done, shows normal heart size, patchy left perihilar basilar infiltrate. Blood cultures are sterile thus far. He has not had fevers. Denied any particular exposure history. Started empirically on combination of azithromycin, cefdinir. ALLERGIES: None known. MEDICINES: Include azithromycin, cefdinir, atorvastatin, rivaroxaban, amlodipine, ascorbic acid, tamsulosin, pantoprazole, multivitamin. PAST MEDICAL HISTORY: Includes diabetes mellitus with known vasculopathy, acute myocardial infarct, hypertension, previous stroke, hyperlipidemia, previous history of colon cancer with bowel resection. SOCIAL HISTORY: Former smoker. No ethanol. No illicit drug use. FAMILY HISTORY: Noncontributory. REVIEW OF SYSTEMS: Otherwise, unremarkable 10-point [place] [address] CONSULTATION Name: ZOHAIB GAMEZLIE KYARA Room: [address] IN [facility]#: [id number] Admission: 08/18/19 Attend Phys: Jaycob Herron Discharge: Date of : 47 Report #: [id number] PHYSICAL EXAMINATION: GENERAL: He is alert, cooperative, appropriate. He is in mild distress. He is sitting at the side of the bed. He is lucid. He is not currently on supplemental oxygen. There has been no coughing, appears reasonably well nourished. VITAL SIGNS: Temperature 97.0, pulse 68, respirations 20, blood pressure 160/92. SKIN: Warm, dry, no rashes. HEENT: Normocephalic. 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 NECK: Supple. LUNGS: Somewhat diminished overall, few scattered crackles on the left side. ABDOMEN: Obese, soft, no apparent tenderness. AND RECTAL: Deferred. LABORATORY DATA: CBC: White count of 5.5, H and H 8.8 and 27.1, platelets of 135. Electrolytes: Sodium 141, potassium 3.9, chloride 107, bicarbonate is 28, anion gap of 6, BUN and creatinine 18 and 1.1, glucose of 131. LFTs unremarkable. Albumin of 3.3. Total protein 7.6. Estimated GFR is 66. PT 13.1, INR 1.3. Troponin less than 0.06. Lactic acid 0.7. ASSESSMENT: Possible pneumonitis, clinically is not apparent, presentation suggests more perhaps orthostatic hypotension type picture. It is planned to rule out for COVID-19. He is in isolation. We will continue that. He has empiric therapy for appears to be community-acquired pneumonia. We will monitor expectantly for any clinical deterioration. <ELECTRONICALLY SIGNED> By: Sesar Allison MD 08/20/19 0750 1107 [id number] Allison MD /nt
--- NOTE | 2019-08-20 08:58 | NUR ---
ASSUMED CARE OF PT THIS AM AROUND 07- ACCOUNTS ADJUSTABLE CLERK IN PLACE ORDERED TRACING SR, PACEMAKER NOTED- UPON ASSESSMENT PT NOTED TO BE RESTING IN BED, WATCHING TV- PT A&O X4- CONT OF BOWEL AND BLADDER- SBA WITH TRANSFERS FOR SAFETY- LCTA/DIMINISHED IN BASES- WET COUGH NOTED- DYSPNEA NOTED ON EXERTION- VSS, 2L VIA NC PRN- ABD SOFT/OBESE/NON-TENDER, BS X4 QUADS- LAST BM REPORTED 08/19/19- IV NOTED TO LEFT HAND INTACT AND SL-2+ BLE EDEMA NOTED, LEG ELEVATION ENCOURAGED- PT DENIES ANY C/O PAIN/DISCOMFORT AT THIS TIME- CALL LIGHT AND PESONAL BELONGINGS WITH IN REACH- PT MAKES NEEDS KNOWN- ALL NEEDS MET AT THIS TIME-WCTM
[2019-08-20 12:33] VITALS: BP 145/81
[2019-08-20 14:19] LABS: HEMATOCRIT 28.7 % (42.0-52.0); HEMOGLOBIN 9.4 gm/dL (14.0-18.0); MCH 24.4 pg (26.0-34.0); MCHC 32.6 g/dL (28.0-37.0); MCV 74.8 fL (80.0-100.0); MPV 7.9 fl. (7.2-11.1); RBC 3.83 mil/uL (4.50-6.00); RDW-CV 16.3 % (10.5-14.5); WBC 6.2 thou/uL (4.0-11.0)
[2019-08-20 14:31] LABS: ALBUMIN 3.4 g/dL (3.4-5.0); CALCIUM 8.8 mg/dL (8.5-10.1); CREATININE 1.2 mg/dL (0.6-1.3); MAGNESIUM 2.1 mg/dL (1.8-2.4); POTASSIUM 4.2 mmol/L (3.5-5.1); TOTAL PROTEIN 7.8 g/dL (6.4-8.2)
[2019-08-20 16:05] VITALS: BP 120/69
[2019-08-20 20:00] VITALS: BP 147/73
[2019-08-21] VITALS: BP 143/63
[2019-08-21 04:00] VITALS: BP 132/71
[2019-08-21 04:37] LABS: ABSOLUTE EOSINOPHILS 0.1 thou/uL (0.0-0.7); ABSOLUTE LYMPHOCYTES 1.1 thou/uL (0.8-5.3); ABSOLUTE MONOCYTES 0.5 thou/uL (0.0-1.2); ABSOLUTE NEUTROPHILS 4.1 thou/uL (1.6-8.1); BASOPHILS 0.8 %; EOSINOPHILS 2.5 %; HEMATOCRIT 25.6 % (42.0-52.0); HEMOGLOBIN 8.4 gm/dL (14.0-18.0); LYMPHOCYTES 18.4 %; MCH 24.2 pg (26.0-34.0); MCHC 32.9 g/dL (28.0-37.0); MCV 73.6 fL (80.0-100.0); MONOCYTES 8.4 %; MPV 7.7 fl. (7.2-11.1); NUCLEATED RBCS 0 /100WBC; PLATELET COUNT* 141 thou/uL (150-400); POLYS 69.9 %; RBC 3.48 mil/uL (4.50-6.00); RDW-CV 16.8 % (10.5-14.5); WBC 5.8 thou/uL (4.0-11.0)
[2019-08-21 08:17] VITALS: BP 146/82
--- NOTE | 2019-08-21 09:12 | NUR ---
ASSUMED CARE OF PT THIS AM AROUND 0715- RADAR REPAIRER IN PLACE ORDERED, V-PACED NOTED- UPON ASSESSMENT PT NOTED TO BE SITTING ON SIDE OF BED- PT A&O X4- CONT OF BOWEL AND BLADDER-UP AD-SEYMOUR IN ROOM, STEADY GAIT NOTED- LCTA/DIMINISHED IN BASES, RESP EVEN AND UN-LABORED- PT REPORTS DRY COUGH- DYSPNEA NOTED ON EXERTION- VSS, O2 SAT 92% ON RA- ABD FIRM/ROUND/NON-TENDER, BS X4 QUADS- GOOD PO INTAKE NOTED- IV NOTED TO LEFT HAND INTACT AND SL- 2+ BLE EDEMA NOTED- ISOLATION PRECAUTIONS REMAIN IN PLACE INDICATED R/T PENDING COVID- PT DENIES ANY C/O PAIN/DISCOMFORT AT THIS TIME- CALL LIGHT AND PERSONAL BELONGINGS WITH IN REACH- PT MAKES NEEDS KNOWN- ALL NEEDS MET AT THIS TIME-WCTM
[2019-08-21 12:19] VITALS: BP 112/43
[2019-08-21 16:49] VITALS: BP 133/73
[2019-08-21 20:00] VITALS: BP 142/89
[2019-08-22] VITALS: BP 149/74
[2019-08-22 04:00] VITALS: BP 137/77
--- NOTE | 2019-08-22 04:16 | NUR ---
ASSUMED CARE OF PT AFTER REPORT AT 1930. PT A&OX4. VSS. PHYSICAL ASSESSMENT COMPLETED AND CHARTED. PT ON O2 AR 2L NC. PT TRACING SR/BBB/VPACED ON TELE. PT UPADLIB TO RESTROOM. PT DENIES ANY PAIN OR DISCOMFORT. CALL LIGHT WITHIN REACH.
--- NOTE | 2019-08-22 07:20 | NUR ---
CHANGE OF SHIFT, BEDSIDE REPORT GIVEN PATIENT SEEN AT BEDSIDE, IN BED RESTING ASSUMED PATIENT CARE
[2019-08-22 08:00] VITALS: BP 129/74
--- NOTE | 2019-08-22 09:59 | NUR ---
Spoke with Macie Carey negative. Anticipate dc to home tomorrow. No needs. Following.
[2019-08-22 16:00] VITALS: BP 149/82
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
[2019-08-22 20:00] VITALS: BP 143/87
[2019-08-23] VITALS: BP 151/80
--- NOTE | 2019-08-23 04:51 | NUR ---
ASSUMED CARE OF PT AFTER REPORT AT 1930. PT A&OX4. VSS. PHYSICAL ASSESSMENT COMPLETED AND CHARTED. PT ON RA. PT ON MEDSURG STATUS. PT UPADLIB TO RESTROOM. PT DENIES ANY PAIN OR DISCOMFORT. PT ABLE TO SLEEP WELL ON BED. CALL LIGHT WITHIN REACH.
[2019-08-23 08:00] VITALS: BP 164/80
[2019-08-23] MEDS ORDERED: NORVASC5 MG PO (10:07)
[2019-08-23] MEDS ORDERED: ASPIR 8181 MG PO (10:07)
[2019-08-23] MEDS ORDERED: METOPROLOL SUCC25 M1 PO (10:07)
[2019-08-23] MEDS ORDERED: CEFDINIR300 MG PO (10:07)
[2019-08-23 10:59] VITALS: BP 164/80
[2019-08-23 11:06] VITALS: BP 164/80
[2019-08-23 12:22] VITALS: BP 144/80
== END 2019-08-23 12:50 | disposition home or self-care (01) | DRG 193 ==
LOC: M.ERS 15:53 → M.2W 19:35 → M.TBA-ER 19:35 → M.2W 08-19 00:14
PROVIDERS: Internal Medicine; Personal Emergency Response Attendant; ADMIT Internal Medicine
DX: J18.9 Pneumonia, unspecified organism (principal); J96.01 Acute respiratory failure with hypoxia; N39.0 Urinary tract infection, site not specified; I50.22 Chronic systolic (congestive) heart failure; D68.59 Other primary thrombophilia; I42.9 Cardiomyopathy, unspecified; I95.9 Hypotension, unspecified; E78.5 Hyperlipidemia, unspecified; I11.0 Hypertensive heart disease with heart failure; I25.5 Ischemic cardiomyopathy; I25.10 Atherosclerotic heart disease of native coronary artery without angina pectoris; I49.5 Sick sinus syndrome; D50.9 Iron deficiency anemia, unspecified; I48.0 Paroxysmal atrial fibrillation; Z79.899 Other long term (current) drug therapy; Z86.73 Personal history of transient ischemic attack (TIA), and cerebral infarction without residual deficits; Z90.49 Acquired absence of other specified parts of digestive tract; I25.2 Old myocardial infarction; Z95.5 Presence of coronary angioplasty implant and graft; Z86.718 Personal history of other venous thrombosis and embolism; Z79.01 Long term (current) use of anticoagulants; Z95.0 Presence of cardiac pacemaker

== ENCOUNTER 2019-09-23 22:38 | Emergency (ER) | payer OTHER ==
[~2019-09-23] VITALS: Ht 180.3 cm; Wt 117.8 kg
[~2019-09-23 22:38] MED LIST changes: +ASPIR 8181 MG PO; +CEFDINIR300 MG PO
[2019-09-23 23:08] LABS: ABSOLUTE EOSINOPHILS 0.1 thou/uL (0.0-0.7); ABSOLUTE LYMPHOCYTES 1.3 thou/uL (0.8-5.3); ABSOLUTE MONOCYTES 0.4 thou/uL (0.0-1.2); ABSOLUTE NEUTROPHILS 3.6 thou/uL (1.6-8.1); BASOPHILS 0.8 %; EOSINOPHILS 2.2 %; HEMATOCRIT 24.8 % (42.0-52.0); LYMPHOCYTES 23.5 %; MCH 22.7 pg (26.0-34.0); MCHC 32.2 g/dL (28.0-37.0); MCV 70.5 fL (80.0-100.0); MPV 7.5 fl. (7.2-11.1); NUCLEATED RBCS 0 /100WBC; PLATELET COUNT* 170 thou/uL (150-400); POLYS 65.5 %; RBC 3.52 mil/uL (4.50-6.00); RDW-CV 16.9 % (10.5-14.5); WBC 5.5 thou/uL (4.0-11.0)
[2019-09-23 23:16] LABS: CALCIUM 8.3 mg/dL (8.5-10.1); CREATININE 1.3 mg/dL (0.6-1.3); POTASSIUM 4.2 mmol/L (3.5-5.1)
[2019-09-23 23:18] LABS: INR 1.2
[2019-09-23 23:27] LABS: ALBUMIN 3.5 g/dL (3.4-5.0); TOTAL BILIRUBIN 0.8 mg/dL (<0.1-1.0); TOTAL PROTEIN 7.6 g/dL (6.4-8.2)
[2019-09-23 23:38] LABS: URINE BILIRUBIN NEGATIVE (Negative); URINE BLOOD TRACE (Negative); URINE CLARITY CLEAR; URINE COLOR YELLOW; URINE GLUCOSE-RANDOM NEGATIVE (Negative); URINE KETONES NEGATIVE (Negative); URINE LEUKOCYTES-REFLEX 2+ (Negative); URINE NITRITE-REFLEX NEGATIVE (Negative); URINE PROTEIN NEGATIVE (Negative); URINE SPECIFIC GRAVITY 1.025 (1.005-1.030); URINE UROBILINOGEN 0.2 E.U./dl (0.2-1.0)
[2019-09-24 00:41] LABS: CASTS None Seen /LPF (None Seen); SQUAMOUS 0-3 Few /LPF (0-3); URINE RBC 0-2 Rare /HPF (0-2)
[2019-09-24 00:42] LABS: BACTERIA-REFLEX 1-9 Few /HPF (None Seen); CRYSTALS None Seen /LPF (None Seen)
[2019-09-24 01:04] LABS: HYPOCHROMASIA 2+; MICROCYTES 2+; PLATELET ESTIMATE ADEQUATE
[2019-09-24 01:05] LABS: POIKILOCYTOSIS 1+
[2019-09-24] MEDS ORDERED: MACROBID 100 M100 M2 PO (01:19)
[2019-09-24 01:38] VITALS: BP 154/78
--- NOTE | 2019-09-24 13:05 | EKG ---
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1945 Requested By: Margie Flores Order Number: [id number] MD: Ludwin Rosas Measurements Intervals [place] Rate: 83 P: IN: 113 QRS: 31 QRSD: 112 T: 11 QT: 377 QTc: 443 Interpretive Statements Sinus rhythm with short IN interval Low voltage, precordial leads Inferior Q waves noted Abnormal R-wave progression, late transition Compared to ECG 08/18/2019 15:56:52 Low QRS voltage now present No significant changes noted Electronically Signed On 09-24-2019 13:03:51 CDT by Ludwin Rosas [email or web address] <ELECTRONICALLY SIGNED> By: Ludwin Rosas MD, FACC 09/24/19 1303 [id number] [id number] Ludwin Rosas MD, FACC /EPI
== END 2019-09-24 01:39 | disposition still patient (30) ==
LOC: M.ERS 22:38
PROVIDERS: Emergency Medicine
DX: N39.0 Urinary tract infection, site not specified (principal); R55 Syncope and collapse; R60.0 Localized edema; E78.5 Hyperlipidemia, unspecified; I25.10 Atherosclerotic heart disease of native coronary artery without angina pectoris; I11.0 Hypertensive heart disease with heart failure; I50.22 Chronic systolic (congestive) heart failure; Z86.73 Personal history of transient ischemic attack (TIA), and cerebral infarction without residual deficits; Z95.5 Presence of coronary angioplasty implant and graft

== ENCOUNTER 2020-03-06 00:25 | Inpatient (IN) | payer OTHER ==
[2020-03-06] VITALS (7 sets, daily range): BP systolic 102–152; BP diastolic 57–74
[~2020-03-06] VITALS: Ht 180.3 cm; Wt 113.4 kg
[~2020-03-06 00:25] MED LIST changes: +MACROBID 100 M100 M2 PO
[2020-03-06] MEDS ORDERED: SIMVASTATIN80 MG PO (00:47)
[2020-03-06 00:53] LABS: URINE BILIRUBIN NEGATIVE (Negative); URINE BLOOD TRACE (Negative); URINE CLARITY CLEAR; URINE COLOR YELLOW; URINE GLUCOSE-RANDOM NEGATIVE (Negative); URINE KETONES NEGATIVE (Negative); URINE LEUKOCYTES-REFLEX 1+ (Negative); URINE NITRITE-REFLEX NEGATIVE (Negative); URINE PROTEIN NEGATIVE (Negative); URINE SPECIFIC GRAVITY 1.025 (1.005-1.030); URINE UROBILINOGEN 0.2 E.U./dl (0.2-1.0)
[2020-03-06 01:01] LABS: BACTERIA-REFLEX >30 Many /HPF (None Seen); CASTS None Seen /LPF (None Seen); CRYSTALS None Seen /LPF (None Seen); SQUAMOUS 0-3 Few /LPF (0-3); URINE RBC 3-10 Few /HPF (0-2); WBC CLUMPS Few (None Seen)
[2020-03-06 01:09] LABS: HEMATOCRIT 33.3 % (42.0-52.0); HEMOGLOBIN 11.5 gm/dL (14.0-18.0); MCH 27.8 pg (26.0-34.0); MCHC 34.6 g/dL (28.0-37.0); MCV 80.5 fL (80.0-100.0); MPV 7.2 fl. (7.2-11.1); NUCLEATED RBCS 0 /100WBC; PLATELET COUNT* 110 thou/uL (150-400); RBC 4.13 mil/uL (4.50-6.00); RDW-CV 18.2 % (10.5-14.5); WBC 5.5 thou/uL (4.0-11.0)
[2020-03-06 01:17] LABS: APTT 29.9 Seconds (25.0-31.3); INR 1.3
[2020-03-06 01:18] LABS: CALCIUM 8.5 mg/dL (8.5-10.1); CREATININE 1.5 mg/dL (0.6-1.3); POTASSIUM 3.9 mmol/L (3.5-5.1)
[2020-03-06 01:33] LABS: ABSOLUTE LYMPHOCYTES 0.4 thou/uL (0.8-5.3); ABSOLUTE MONOCYTES 0.2 thou/uL (0.0-1.2); ABSOLUTE NEUTROPHILS 4.9 thou/uL (1.6-8.1); ANISOCYTOSIS 1+; PLATELET ESTIMATE DECREASED; POIKILOCYTOSIS Occasional; POLYCHROMASIA Occasional
[2020-03-06 01:36] LABS: ALBUMIN 3.5 g/dL (3.4-5.0); TOTAL BILIRUBIN 0.9 mg/dL (<0.1-1.0); TOTAL PROTEIN 7.5 g/dL (6.4-8.2)
[2020-03-06 08:28] LABS: ABSOLUTE LYMPHOCYTES 0.3 thou/uL (0.8-5.3); ABSOLUTE MONOCYTES 0.4 thou/uL (0.0-1.2); ABSOLUTE NEUTROPHILS 3.4 thou/uL (1.6-8.1); BASOPHILS 0.7 %; EOSINOPHILS 0.9 %; HEMATOCRIT 31.4 % (42.0-52.0); HEMOGLOBIN 10.8 gm/dL (14.0-18.0); LYMPHOCYTES 7.6 %; MCH 27.6 pg (26.0-34.0); MCHC 34.2 g/dL (28.0-37.0); MCV 80.6 fL (80.0-100.0); MONOCYTES 10.7 %; MPV 7.1 fl. (7.2-11.1); NUCLEATED RBCS 0 /100WBC; PLATELET COUNT* 103 thou/uL (150-400); POLYS 80.1 %; RDW-CV 17.9 % (10.5-14.5); WBC 4.2 thou/uL (4.0-11.0)
[2020-03-06 08:53] LABS: ALBUMIN 3.4 g/dL (3.4-5.0); ALKALINE PHOSPHATASE 60 U/L (46-116); ANION GAP 7 mmol/L (7-16); BUN 15 mg/dL (7-18); CHLORIDE 104 mmol/L (98-107); CO2 28 mmol/L (21-32); CREATININE 1.5 mg/dL (0.6-1.3); GLUCOSE 134 mg/dL (70-99); POTASSIUM 3.7 mmol/L (3.5-5.1); SGOT 19 U/L (15-37); SGPT 25 U/L (30-65); SODIUM 139 mmol/L (136-145); TOTAL PROTEIN 6.8 g/dL (6.4-8.2)
--- NOTE | 2020-03-06 09:43 | EKG ---
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1945 Requested By: German Greenwood Order Number: [id number] MD: Wiliam Reyes Measurements Intervals [place] Rate: 83 P: 42 PA: 155 QRS: 28 QRSD: 120 T: 48 QT: 366 QTc: 430 Interpretive Statements Sinus rhythm Atrial premature complex Nonspecific intraventricular conduction delay Anterolateral infarct, old Compared to ECG 09/23/2019 22:43:04 Atrial premature complex(es) now present Electronically Signed On 03-06-2020 9:43:46 CDT by Wiliam Reyes [email or web address] <ELECTRONICALLY SIGNED> By: Wiliam Reyes MD, FACC 03/06/20 0943 9 9 Wiliam Reyes MD, FAC /EPI
[2020-03-07 07:20] VITALS: BP 153/74
[2020-03-07 16:37] VITALS: BP 142/77
[2020-03-07 20:30] VITALS: BP 167/89
[2020-03-08 05:05] LABS: ABSOLUTE EOSINOPHILS 0.1 thou/uL (0.0-0.7); ABSOLUTE LYMPHOCYTES 0.7 thou/uL (0.8-5.3); ABSOLUTE MONOCYTES 0.4 thou/uL (0.0-1.2); ABSOLUTE NEUTROPHILS 2.3 thou/uL (1.6-8.1); BASOPHILS 0.7 %; EOSINOPHILS 3.2 %; HEMATOCRIT 29.4 % (42.0-52.0); HEMOGLOBIN 10.1 gm/dL (14.0-18.0); LYMPHOCYTES 20.8 %; MCH 27.8 pg (26.0-34.0); MCHC 34.6 g/dL (28.0-37.0); MCV 80.4 fL (80.0-100.0); MONOCYTES 11.9 %; MPV 7.4 fl. (7.2-11.1); NUCLEATED RBCS 0 /100WBC; PLATELET COUNT* 91 thou/uL (150-400); POLYS 63.4 %; RBC 3.65 mil/uL (4.50-6.00); RDW-CV 18.4 % (10.5-14.5); WBC 3.6 thou/uL (4.0-11.0)
[2020-03-08 05:47] LABS: ALBUMIN 2.9 g/dL (3.4-5.0); CALCIUM 7.9 mg/dL (8.5-10.1); CREATININE 1.2 mg/dL (0.6-1.3); POTASSIUM 3.8 mmol/L (3.5-5.1); TOTAL BILIRUBIN 0.6 mg/dL (<0.1-1.0); TOTAL PROTEIN 6.6 g/dL (6.4-8.2)
[2020-03-08 08:50] VITALS: BP 148/83
[2020-03-08] MEDS ORDERED: CIPROFLOXACIN500 M1 PO (11:14)
[2020-03-08 11:42] VITALS: BP 148/83
[2020-03-08 13:19] VITALS: BP 148/83
== END 2020-03-08 13:00 | disposition home or self-care (01) | DRG 871 ==
LOC: M.ERS 00:25 → M.3W 01:49 → M.TBA-ER 01:49 → M.3W 11:45 → M.ORTHSURG 19:35
PROVIDERS: Family Medicine; Nurse Practitioner; ADMIT Internal Medicine; ATTEND Internal Medicine
DX: A41.9 Sepsis, unspecified organism (principal); N17.0 Acute kidney failure with tubular necrosis; I50.20 Unspecified systolic (congestive) heart failure; N39.0 Urinary tract infection, site not specified; Z20.828 Contact with and (suspected) exposure to other viral communicable diseases; I25.10 Atherosclerotic heart disease of native coronary artery without angina pectoris; I25.5 Ischemic cardiomyopathy; R65.20 Severe sepsis without septic shock; R31.9 Hematuria, unspecified; R73.03 Prediabetes; R73.9 Hyperglycemia, unspecified; K21.9 Gastro-esophageal reflux disease without esophagitis; N40.0 Benign prostatic hyperplasia without lower urinary tract symptoms; E78.2 Mixed hyperlipidemia; I11.0 Hypertensive heart disease with heart failure; Z86.73 Personal history of transient ischemic attack (TIA), and cerebral infarction without residual deficits; I25.2 Old myocardial infarction; Z85.038 Personal history of other malignant neoplasm of large intestine; Z95.5 Presence of coronary angioplasty implant and graft; Z87.891 Personal history of nicotine dependence; Z95.0 Presence of cardiac pacemaker; Z86.718 Personal history of other venous thrombosis and embolism

== ENCOUNTER 2020-12-13 23:17 | Observation (INO) | payer OTHER ==
[~2020-12-13] VITALS: Ht 177.8 cm; Wt 120.7 kg
[~2020-12-13 23:17] MED LIST changes: +CIPROFLOXACIN500 M1 PO; +SIMVASTATIN80 MG PO
[2020-12-13 23:25] VITALS: BP 151/77
[2020-12-14 00:05] LABS: ABSOLUTE BASOPHILS 0.1 thou/uL (0.0-0.2); ABSOLUTE EOSINOPHILS 0.1 thou/uL (0.0-0.7); ABSOLUTE LYMPHOCYTES 0.8 thou/uL (0.8-5.3); ABSOLUTE MONOCYTES 0.5 thou/uL (0.0-1.2); ABSOLUTE NEUTROPHILS 3.8 thou/uL (1.6-8.1); BASOPHILS 1.2 %; EOSINOPHILS 1.9 %; HEMATOCRIT 21.7 % (42.0-52.0); LYMPHOCYTES 15.7 %; MCH 21.1 pg (26.0-34.0); MCHC 31.4 g/dL (28.0-37.0); MCV 67.3 fL (80.0-100.0); MPV 7.1 fl. (7.2-11.1); NUCLEATED RBCS 0 /100WBC; PLATELET COUNT* 166 thou/uL (150-400); POLYS 72.2 %; RBC 3.22 mil/uL (4.50-6.00); RDW-CV 19.4 % (10.5-14.5); WBC 5.3 thou/uL (4.0-11.0)
[2020-12-14 00:11] LABS: CREATININE 1.5 mg/dL (0.6-1.3); POTASSIUM 3.9 mmol/L (3.5-5.1)
[2020-12-14 00:17] LABS: HEMOGLOBIN 6.8 gm/dL (14.0-18.0)
[2020-12-14 00:22] LABS: ALBUMIN 3.1 g/dL (3.4-5.0); TOTAL BILIRUBIN 0.9 mg/dL (<0.1-1.0); TOTAL PROTEIN 7.1 g/dL (6.4-8.2)
[2020-12-14 01:32] LABS: URINE BILIRUBIN NEGATIVE (Negative); URINE BLOOD NEGATIVE (Negative); URINE CLARITY CLEAR; URINE COLOR YELLOW; URINE GLUCOSE-RANDOM NEGATIVE (Negative); URINE KETONES TRACE (Negative); URINE LEUKOCYTES-REFLEX NEGATIVE (Negative); URINE NITRITE-REFLEX NEGATIVE (Negative); URINE PROTEIN 1+ (Negative); URINE SPECIFIC GRAVITY >= 1.030 (1.005-1.030); URINE UROBILINOGEN 0.2 E.U./dl (0.2-1.0)
[2020-12-14 02:28] LABS: INR 1.3; PROTIME 13.5 Seconds (9.20-11.50)
[2020-12-14 03:20] VITALS: BP 117/65
[2020-12-14 04:30] VITALS: BP 128/67
--- NOTE | 2020-12-14 04:30 | NUR ---
RECEIVED REPORT FROM ER AND PT TO ROOM AT 0325 WITH BELONGINGS. GAIT STEADY WITH TRANSFER INTO BED. REMAINS SITTING UPON SIDE OF BED, O2 ON AT 2L/NC. SOA WITH ACTIVITY. HAVING OCC DRY HACKY COUGH. GAUTAM LOWER LEGS AND FEET WITH 3+ EDEMA. TELEMETRY APPLIED SHOWING SR. DISCUSSED BLOOD TRANSFUSION AND WILL BEGIN WITH AVAILABLE. SEE ADMISSION ASSESSMENT AND HX. WILL CONT TO MONITOR AND ASSIST NEEDED.
[2020-12-14 04:32] VITALS: BP 136/70; BP 145/75; BP 150/80; BP 155/86
[2020-12-14] MEDS ORDERED: PROTONIX40 M2 PO (05:36)
[2020-12-14] MEDS ORDERED: SIMVASTATIN40 MG PO (05:39)
[2020-12-14] MEDS ORDERED: COZAAR 25 MG TA25 M1 PO (05:40)
[2020-12-14] MEDS ORDERED: TOPROL XL25 MG PO (05:41)
--- NOTE | 2020-12-14 07:30 | NUR ---
PRBC TRANSFUSED WITHOUT INCIDENT. PT STATES HE FEELS BETTER AND WANTS TO GO HOME. PT STILL SOA WITH ACTIVITY. TELEMETRY SHOWING SR. NO COMPLAINTS VOICED.
[2020-12-14 08:00] VITALS: BP 127/76
[2020-12-14 08:55] LABS: HEMATOCRIT 24.8 % (42.0-52.0); HEMOGLOBIN 7.7 gm/dL (14.0-18.0); MCH 21.5 pg (26.0-34.0); MCHC 31.3 g/dL (28.0-37.0); MCV 68.6 fL (80.0-100.0); MPV 7.4 fl. (7.2-11.1); RBC 3.61 mil/uL (4.50-6.00); RDW-CV 20.8 % (10.5-14.5); WBC 6.2 thou/uL (4.0-11.0)
[2020-12-14 09:04] LABS: CALCIUM 8.4 mg/dL (8.5-10.1); CREATININE 1.4 mg/dL (0.6-1.3); POTASSIUM 4.2 mmol/L (3.5-5.1)
[2020-12-14] MEDS ORDERED: LASIX 20 MG TAB20 MG PO (10:05)
[2020-12-14 11:51] VITALS: BP 127/76
--- NOTE | 2020-12-14 12:31 | NUR ---
Pt is A&O. Resides at home with . Independent. No DME. No hx of HH or SNF. Pt discharging to home today. No needs.
--- NOTE | 2020-12-14 13:03 | NUR ---
RECEIVED REPORT. ASSUMED CARE OF PT AROUND 0730. AM ASSESSMENT AND VITALS COMPLETED CHARTED. MEDS PER EMAR. HBG STABLE. DC ORDERS RECEIVED. DISCHARGE COMPLETED DOCUMENTED. IV AND LICENSED OCCUPATIONAL THERAPIST REMOVED. ALL BELONGINGS GATHERED AND SENT OUT WITH PT. PT LEFT UNIT IN WC WITH NURSING STAFF. PT LEFT HOSPITAL IN CAR WITH DAUGHTER.
== END 2020-12-14 13:38 | disposition home or self-care (01) ==
LOC: M.ERS 23:17 → M.2W 12-14 02:30 → M.TBA-ER 12-14 02:30 → M.2W 12-14 03:29
PROVIDERS: Family Medicine; Personal Emergency Response Attendant; ADMIT Internal Medicine; ATTEND Internal Medicine
DX: D64.9 Anemia, unspecified (principal); I11.0 Hypertensive heart disease with heart failure; I50.23 Acute on chronic systolic (congestive) heart failure; Z20.822 Contact with and (suspected) exposure to COVID-19; J90 Pleural effusion, not elsewhere classified; R60.0 Localized edema; R06.09 Other forms of dyspnea; E78.5 Hyperlipidemia, unspecified; K74.60 Unspecified cirrhosis of liver; R73.03 Prediabetes; Z86.73 Personal history of transient ischemic attack (TIA), and cerebral infarction without residual deficits; Z85.038 Personal history of other malignant neoplasm of large intestine

== ENCOUNTER 2021-03-03 01:04 | Emergency (ER) | payer OTHER ==
[~2021-03-03] VITALS: Ht 180.3 cm; Wt 102.1 kg
[~2021-03-03 01:04] MED LIST changes: +LASIX 20 MG TAB20 MG PO; +PROTONIX40 M2 PO; +TOPROL XL25 MG PO
[2021-03-03] MEDS ORDERED: HYDROCODON-ACE1 EAC7 PO (02:52)
[2021-03-03 03:05] VITALS: BP 175/83
== END 2021-03-03 03:05 | disposition home or self-care (01) ==
LOC: M.ERS 01:04
DX: S62.102A Fracture of unspecified carpal bone, left wrist, initial encounter for closed fracture (principal); I11.0 Hypertensive heart disease with heart failure; I50.20 Unspecified systolic (congestive) heart failure; E78.5 Hyperlipidemia, unspecified; I25.2 Old myocardial infarction; E11.9 Type 2 diabetes mellitus without complications; Z95.5 Presence of coronary angioplasty implant and graft; Z98.890 Other specified postprocedural states; Z86.73 Personal history of transient ischemic attack (TIA), and cerebral infarction without residual deficits; Z79.899 Other long term (current) drug therapy; W19.XXXA Unspecified fall, initial encounter; Y93.89 Activity, other specified; Y92.89 Other specified places as the place of occurrence of the external cause; Y99.8 Other external cause status

== ENCOUNTER 2021-04-22 09:22 | Emergency (ER) | payer OTHER ==
[~2021-04-22] VITALS: Ht 180.3 cm; Wt 102.1 kg
[~2021-04-22 09:22] MED LIST changes: +HYDROCODON-ACE1 EAC7 PO
[2021-04-22] MEDS ORDERED: BUMETANIDE 1 MG1 M1 PO (09:33)
[2021-04-22] MEDS ORDERED: EX-LAX15 MG PO (09:33)
[2021-04-22 12:10] VITALS: BP 146/75
== END 2021-04-22 12:10 | disposition home or self-care (01) ==
LOC: M.ERS 09:22
DX: I89.0 Lymphedema, not elsewhere classified (principal); I10 Essential (primary) hypertension; E78.5 Hyperlipidemia, unspecified; E11.9 Type 2 diabetes mellitus without complications; Z79.899 Other long term (current) drug therapy